=== PATIENT | male | born 1975 | race Caucasian/White ===

== ENCOUNTER 2017-08-29 11:57 | Observation (INO) | payer OTHER ==
[2017-08-29] VITALS (7 sets, daily range): BP systolic 123–181; BP diastolic 77–107; PULSE 86–108; RESP 14–20; TEMP 97.9–99; O2SAT 95–99
[~2017-08-29] VITALS: Ht 175.3 cm; Wt 104.5 kg
[2017-08-29] MEDS ORDERED: LISI-515 PO (12:16)
[2017-08-29] MEDS ORDERED: TEST1INJ3 IM (12:19)
[2017-08-29] MEDS ORDERED: ASPIRIN 325 MG TAB PO ONE (12:30)
[2017-08-29 12:36] LABS: AUTOMATED NEUTROPHIL # 4.8 TH/MM3 (1.8-7.7); BASOPHIL # 0.1 TH/MM3 (0-0.2); BASOPHIL % 1.1 % (0.0-2.0); EOSINOPHIL # 0.3 TH/MM3 (0-0.4); HEMATOCRIT 46.1 % (39.0-51.0); HEMOGLOBIN 16.1 GM/DL (13.0-17.0); LYMPH % 31.4 % (9.0-44.0); LYMPHOCYTE # 2.7 TH/MM3 (1.0-4.8); MEAN CELL VOLUME 87.8 FL (80.0-100.0); MEAN CORPUSCULAR HEMOGLOBIN 30.7 PG (27.0-34.0); MEAN CORPUSCULAR HGB CONC 34.9 % (32.0-36.0); MEAN PLATELET VOLUME 8.8 FL (7.0-11.0); MONO % 9.7 % (0.0-8.0); MONOCYTE # 0.8 TH/MM3 (0-0.9); NEUT % 54.8 % (16.0-70.0); PLATELET COUNT 240 TH/MM3 (150-450); RED BLOOD COUNT 5.25 MIL/MM3 (4.50-5.90); RED CELL DISTRIBUTION WIDTH 13.7 % (11.6-17.2); WHITE BLOOD COUNT 8.7 TH/MM3 (4.0-11.0)
[2017-08-29 12:47] LABS: PROTHROMBIN TIME - PATIENT 10.6 SEC (9.8-11.6)
--- NOTE | 2017-08-29 12:48 | PD ---
HPI Chief Complaint: Chest Pain Time Seen by Provider: 12:12 Travel History International Travel<30 days: No Contact w/Intl Traveler<30days: No Traveled to known affect area: No History of Present Illness HPI 42 yo male here for left sided chest pain and dizziness x 2 months. Going on and off. Per patient he has had EKGs at his house that have been normal. Was seen by a doctor who started him on antibiotics for possible "stomach" issues and this seemed to improve symptoms for some time. Now patient is having symptoms again. Nothing seems to bring it. No SOB. Not worst with movement. Pain is 5/10 and sharp. No urinary and BM issues. Feeling nauseous on occasion. No chest pain at this time. He got more concerned because of the dizziness he is having now which is new. Per patient he feels like he is going to pass out. History of hypertension on meds and on testosterone therapy for low testosterone. Recent travel history by plane to [place]. No other medical issues at this time. Not taken anything for this. 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 PFSH Past Medical History Cardiovascular Problems: Yes (HTN) Diminished Hearing: No Hypertension: Yes Tetanus Vaccination: Unknown Social History Alcohol Use: No Tobacco Use: No Substance Use: No Allergies-Medications (Allergen,Severity, Reaction): Coded Allergies: No Known Allergies (Unverified , 08/29/17) Reported Meds & Prescriptions Reported Meds & Active Scripts Active Reported Testosterone Cypionate Inj (Testosterone Cypionate) 100 Mg/Ml Inj 100 Mg IM WEEKLY Lisinopril 20 Mg Tab 20 Mg PO DAILY Review of Systems Except as stated in HPI: all other systems reviewed are Neg Physical Exam Narrative GENERAL: SKIN: Warm and dry. HEAD: Atraumatic. Normocephalic. EYES: Pupils equal and round. No scleral icterus. No injection or drainage. ENT: No nasal bleeding or discharge. Mucous membranes pink and moist. NECK: Trachea midline. No JVD. CARDIOVASCULAR: Regular rate and rhythm. No murmurs, S3, S4. RESPIRATORY: No accessory muscle use. Clear to auscultation. Breath sounds equal bilaterally. GASTROINTESTINAL: Abdomen soft, non-tender, nondistended. Hepatic and splenic margins not palpable. MUSCULOSKELETAL: Extremities without clubbing, cyanosis, or edema. No obvious deformities. Full range of motion of the upper and lower extremities bilaterally. 2+ pulses bilaterally. NEUROLOGICAL: Awake and alert. No obvious cranial nerve deficits. Motor grossly within normal limits. Five out of 5 muscle strength in the arms and legs. Normal speech. PSYCHIATRIC: Appropriate mood and affect; insight and judgment normal. Data Data Last Documented VS Vital Signs Date Time Temp Pulse Resp B/P (MAP) Pulse Ox O2 Delivery O2 Flow Rate FiO2 08/29/17 13:00 91 16 175/96 (122) 96 Room Air 08/29/17 12:00 98.2 Orders Orders Electrocardiogram (08/29/17 12:20) Complete Blood Count With Diff (08/29/17 12:20) Comprehensive Metabolic Panel (08/29/17 12:20) Ckmb (Isoenzyme) Profile (08/29/17 12:20) Troponin I (08/29/17 12:20) Prothrombin Time / Inr (Pt) (08/29/17 12:20) Act Partial Throm Time (Ptt) (08/29/17 12:20) Lipase (08/29/17 12:20) D-Dimer (08/29/17 12:20) Magnesium (Mg) (08/29/17 12:20) Thyroid Stimulating Hormone (08/29/17 12:20) Chest, Single Ap (08/29/17 12:20) Iv Access Insert/Monitor (08/29/17 12:20) Ecg Monitoring (08/29/17 12:20) Oximetry (08/29/17 12:20) Aspirin (Aspirin) (08/29/17 12:30) CKMB (08/29/17 12:25) CKMB% (08/29/17 12:25) Admit Order (Ed Use Only) (08/29/17 13:34) Labs Laboratory Tests Test 08/29/17 12:25 White Blood Count 8.7 TH/MM3 Red Blood Count 5.25 MIL/MM3 Hemoglobin 16.1 GM/DL Hematocrit 46.1 % Mean Corpuscular Volume 87.8 FL Mean Corpuscular Hemoglobin 30.7 PG Mean Corpuscular Hemoglobin Concent 34.9 % Red Cell Distribution Width 13.7 % Platelet Count 240 TH/MM3 Mean Platelet Volume 8.8 FL Neutrophils (%) (Auto) 54.8 % Lymphocytes (%) (Auto) 31.4 % Monocytes (%) (Auto) 9.7 % Eosinophils (%) (Auto) 3.0 % Basophils (%) (Auto) 1.1 % Neutrophils # (Auto) 4.8 TH/MM3 Lymphocytes # (Auto) 2.7 TH/MM3 Monocytes # (Auto) 0.8 TH/MM3 Eosinophils # (Auto) 0.3 TH/MM3 Basophils # (Auto) 0.1 TH/MM3 CBC Comment DIFF FINAL Differential Comment Prothrombin Time 10.6 SEC Prothromb Time International Ratio 1.0 RATIO Activated Partial Thromboplast Time 26.4 SEC D-Dimer Quantitative (PE/DVT) 0.24 MG/L FEU Blood Urea Nitrogen 15 MG/DL Creatinine 1.07 MG/DL Random Glucose 101 MG/DL Total Protein 8.0 GM/DL Albumin 4.1 GM/DL Calcium Level 8.6 MG/DL Magnesium Level 2.0 MG/DL Alkaline Phosphatase 61 U/L Aspartate Amino Transf (AST/SGOT) 27 U/L Alanine Aminotransferase (ALT/SGPT) 40 U/L Total Bilirubin 0.3 MG/DL Sodium Level 136 MEQ/L Potassium Level 3.8 MEQ/L Chloride Level 103 MEQ/L Carbon Dioxide Level 25.3 MEQ/L Anion Gap 8 MEQ/L Estimat Glomerular Filtration Rate 76 ML/MIN Total Creatine Kinase 106 U/L Creatine Kinase MB 1.3 NG/ML Troponin I LESS THAN 0.02 NG/ML Lipase 173 U/L Thyroid Stimulating Hormone 3rd Gen 0.670 uIU/ML MDM Medical Decision Making Medical Screen Exam Complete: Yes Emergency Medical Condition: Yes Medical Record Reviewed: Yes Interpretation(s) EKG shows sinus rhythm with no sign of acute ischemia or arrhythmia read by me and attending. CBC & BMP Diagram 08/29/17 12:25 Total Protein 8.0, Albumin 4.1, Calcium Level 8.6, Magnesium Level 2.0, Alkaline Phosphatase 61, Aspartate Amino Transf (AST/SGOT) 27, Alanine Aminotransferase (ALT/SGPT) 40, Total Bilirubin 0.3 lipase WNL troponin and CKMB negative d-dimmer negative Differential Diagnosis Chest pain versus a typical chest pain versus ACS versus PE versus anxiety versus peptic ulcer disease Narrative Course 42-year-old male to presents to the ED for evaluation of chest pain. Patient was properly examined and was found to have signs and symptoms of unclear etiology. Patient does have risk factors for ACS. Labs and imaging ordered. Initial EKG do not show any sign of ischemia read by me and attending. She was given aspirin. Labs and imaging showed no sign of acute disease. Patient she does have risk factors for cardiac disease but has never had a stress test or cardiology evaluation. Because of the symptoms I do recommend stress test for further evaluation. Patient agrees with this. She was admitted to the chest pain center. Procedures EKG Prior to Arrival: No Diagnosis Primary Impression: Chest pain in adult Admitting Information Admitting Physician Requests: Observation [place] Aug 29, 2017 12:48
[2017-08-29 12:53] LABS: D-DIMER 0.24 MG/L FEU (0.00-0.50)
--- NOTE | 2017-08-29 12:55 | RADRPT ---
EXAM DATE/TIME: 08/29/2017 12:36 [facility] COMPARISON: No previous studies available for comparison. INDICATIONS : Has had chest pain several times in the past but pain was more severe today, nonsmoker, no chest surg owen in the past MEDICAL HISTORY : None. SURGICAL HISTORY : None. ENCOUNTER: Initial ACUITY: 1 day PAIN SCORE: 8/10 LOCATION: Bilateral cranial FINDINGS: Minimal linear airspace disease at the left lung base. The cardiomediastinal contours are unremarkabl e. Osseous structures are intact. CONCLUSION: 1. Minimal left lung base airspace disease, likely atelectasis. Marques Mccann MD on August 29, 2017 at 12:54 Board Certified Radiologist. This report was verified electronically.
[2017-08-29 13:08] LABS: ALKALINE PHOSPHATASE 61 U/L (45-117); TOTAL BILIRUBIN ADULT 0.3 MG/DL (0.2-1.0); TROPONIN I LESS THAN 0.02 NG/ML (0.02-0.05)
[2017-08-29 13:10] LABS: ALBUMIN 4.1 GM/DL (3.4-5.0); ALT (GPT) 40 U/L (12-78); AST (GOT) 27 U/L (15-37); BICARBONATE 25.3 MEQ/L (21.0-32.0); BLOOD UREA NITROGEN 15 MG/DL (7-18); CALCIUM 8.6 MG/DL (8.5-10.1); CHLORIDE 103 MEQ/L (98-107); CREATININE 1.07 MG/DL (0.60-1.30); GLOMERULAR FILTRATION RATE 76 ML/MIN (>89); GLUCOSE,RANDOM 101 MG/DL (74-106); SODIUM (NA) 136 MEQ/L (136-145)
[2017-08-29] MEDS ORDERED: cloNIDine HCL 0.1 MG TAB PO ONE (14:00)
[2017-08-29] MEDS ORDERED: RESP: ALBUTEROL 2.5 MG/IPRATROPIUM 0.5 MG NEB (PRN) INH (14:15)
[2017-08-29] MEDS ORDERED: ALPRAZolam 0.25 MG TAB PO PRN (14:15)
[2017-08-29] MEDS ORDERED: ACETAMINOPHEN/HYDROcodone 325 MG/7.5 MG TAB PO PRN (14:15)
[2017-08-29] MEDS ORDERED: cloNIDine HCL 0.1 MG TAB PO PRN (14:15)
[2017-08-29] MEDS ORDERED: ONDANSETRON HCL 4 MG/2 ML VIAL IV PUSH PRN (14:15)
[2017-08-29] MEDS ORDERED: ACETAMINOPHEN 500 MG CPLT PO PRN (14:15)
--- NOTE | 2017-08-29 14:30 | HHI.HP ---
HPI Primary Care Physician Unknown Chief Complaint Chest pain History of Present Illness This is a 42-year-old male with history of hypertension and hyperlipidemia that presents to ED with complaint of 3-4 months of intermittent left-sided chest discomfort. He describes it as a poking sensation that will last him a couple seconds couple minutes. Nothing in particular brings on the discomfort. He saw his primary care physician a couple months ago for this discomfort and had a chest x-ray and was placed on antibiotics but really did not seen any improvement. States he also bought a stationary exercise bicycle and does all 4 times a week for the past month and has never noticed discomfort in his chest. Denies shortness of breath, nausea or diaphoresis with the symptoms. Denies recent illness. Review of Systems General: Patient denies fevers, chills, recent travel HEENT: Patient denies headache, sore throat, difficulty swallowing. Cardiovascular: Has the chest discomfort as mentioned above. Denies sensation of heart beating rapidly or irregularly. No syncope. Denies diaphoresis. Respiratory: Denies shortness of breath or inspirational chest discomfort. Denies coughing wheezing or hemoptysis. GI: Patient denies nausea, vomiting, diarrhea, abdominal pain, bloody stools. Musculoskeletal: Patient denies joint pain or edema. Denies calf pain or edema. Neurovascular: Patient denies numbness, tingling, weakness in extremities. Denies headache. Endocrine: Denies polyuria and polydipsia. Hematologic: Denies easy bruising. Skin: Denies rash or itching. Past Family Social History Allergies: Coded Allergies: No Known Allergies (Unverified , 08/29/17) Past Medical History Hypertension, hyperlipidemia, GERD. Past tobacco abuse stating he quit years ago. Denies diabetes and known CAD. Past Surgical History Denies prior surgeries. Reported Medications Reported Meds & Active Scripts Active Reported Testosterone Cypionate Inj (Testosterone Cypionate) 100 Mg/Ml Inj 100 Mg IM WEEKLY Lisinopril 20 Mg Tab 20 Mg PO DAILY Active Ordered Medications Current Medications Medications (Trade) Dose Ordered Sig/Marcela Route Start Time Stop Time Status Last Admin (Tylenol) 500 mg Q4H PRN PO 08/29/17 14:15 UNV ([place] 7.5-325 Mg) 1 tab Q4H PRN PO 08/29/17 14:15 UNV (Zofran Inj) 4 mg Q6H PRN IV PUSH 08/29/17 14:15 UNV (Protonix) 40 mg DAILY PO 08/29/17 14:15 UNV (Aspirin) 325 mg DAILY PO 08/30/17 09:00 UNV (Xanax) 0.25 mg Q8H PRN PO 08/29/17 14:15 UNV (Duoneb Neb) 1 ampule Q4HR NEB PRN INH 08/29/17 14:15 UNV (Catapres) 0.1 mg Q4H PRN PO 08/29/17 14:15 UNV Family History States his mother had a CABG in her 60s. Social History Quit smoking years ago. Prior to that he smoked 1 pack of cigarettes daily for 15 years. As on average 4-5 beers per day. Denies illicit drugs. Physical Exam Vital Signs Vital Signs Date Time Temp Pulse Resp B/P (MAP) Pulse Ox O2 Delivery O2 Flow Rate FiO2 08/29/17 13:00 91 16 175/96 (122) 96 Room Air 08/29/17 12:33 16 98 Room Air 08/29/17 12:17 16 Room Air 08/29/17 12:00 98.2 86 14 181/107 (131) 99 Room Air Physical Exam GENERAL: This is a well-nourished, well-developed patient, in no apparent distress. Patient speaks in clear complete sentences. Patient is pleasant. HEENT: Head is atraumatic and normocephalic. Neck is supple without lymphadenopathy and trachea is midline. No JVD or carotid bruits. CARDIOVASCULAR: Regular rate and rhythm without murmurs, gallops, or rubs. RESPIRATORY: Clear to auscultation. Breath sounds equal bilaterally. No wheezes , rales, or rhonchi. Chest wall is nontender. No use of accessory muscles. GASTROINTESTINAL: Abdomen is nontender, nondistended. Abdomen soft. No obvious pulsatile mass or bruit. No CVA tenderness. Strong femoral pulses bilaterally. Normal bowel sounds in all quadrants. MUSCULOSKELETAL: Patient is moving upper and lower extremities freely. No calf tenderness or edema, no Homans sign. Strong pulses in upper and lower extremities. NEUROLOGICAL: Patient is alert and oriented. Cranial nerves 2-12 are grossly intact. No focal deficits and speech is clear. SKIN: No rash and turgor is normal. Laboratory Laboratory Tests Test 08/29/17 12:25 White Blood Count 8.7 Red Blood Count 5.25 Hemoglobin 16.1 Hematocrit 46.1 Mean Corpuscular Volume 87.8 Mean Corpuscular Hemoglobin 30.7 Mean Corpuscular Hemoglobin Concent 34.9 Red Cell Distribution Width 13.7 Platelet Count 240 Mean Platelet Volume 8.8 Neutrophils (%) (Auto) 54.8 Lymphocytes (%) (Auto) 31.4 Monocytes (%) (Auto) 9.7 Eosinophils (%) (Auto) 3.0 Basophils (%) (Auto) 1.1 Neutrophils # (Auto) 4.8 Lymphocytes # (Auto) 2.7 Monocytes # (Auto) 0.8 Eosinophils # (Auto) 0.3 Basophils # (Auto) 0.1 CBC Comment DIFF FINAL Differential Comment Prothrombin Time 10.6 Prothromb Time International Ratio 1.0 Activated Partial Thromboplast Time 26.4 D-Dimer Quantitative (PE/DVT) 0.24 Blood Urea Nitrogen 15 Creatinine 1.07 Random Glucose 101 Total Protein 8.0 Albumin 4.1 Calcium Level 8.6 Magnesium Level 2.0 Alkaline Phosphatase 61 Aspartate Amino Transf (AST/SGOT) 27 Alanine Aminotransferase (ALT/SGPT) 40 Total Bilirubin 0.3 Sodium Level 136 Potassium Level 3.8 Chloride Level 103 Carbon Dioxide Level 25.3 Anion Gap 8 Estimat Glomerular Filtration Rate 76 Total Creatine Kinase 106 Creatine Kinase MB 1.3 Troponin I LESS THAN 0.02 Lipase 173 Thyroid Stimulating Hormone 3rd Gen 0.670 Result Diagram: 08/29/17 1225 08/29/17 1225 Imaging Last 48 hours Impressions Chest X-Ray 08/29/17 1220 Signed Impressions: Service Date/Time: Tuesday, August 29, 2017 12:36 - CONCLUSION: 1. Minimal left lung base airspace disease, likely atelectasis. Marques Mccann MD Course Initial EKG is sinus rhythm without significant ST segment depressions or elevations. Caprini VTE Risk Assessment Caprini VTE Risk Assessment: No/Low Risk (score <= 1) Caprini Risk Assessment Model Point Value = 1 Point Value = 2 Point Value = 3 Point Value = 5 Age 41-60 Minor surgery BMI > 25 kg/m2 Swollen legs Varicose veins or History of unexplained or recurrent spontaneous Oral contraceptives or hormone replacement Sepsis (< 1 month) Serious lung disease, including pneumonia (< 1 month) Abnormal pulmonary function Acute myocardial infarction Congestive heart failure (< 1 month) History of inflammatory bowel disease Medical patient at bed rest Age 61-74 Arthroscopic surgery Major open surgery (> 45 min) Laparoscopic surgery (> 45 min) Malignancy Confined to bed (> 72 hours) Immobilizing plaster cast Central venous access Age >= 75 History of VTE Family history of VTE Factor V Leiden Prothrombin [id number] Lupus anticoagulant Anticardiolipin antibodies Elevated serum homocysteine Heparin-induced thrombocytopenia Other congenital or acquired thrombophilia Stroke (< 1 month) Elective arthroplasty Hip, pelvis, or leg fracture Acute spinal cord injury (< 1 month) Prophylaxis Regimen Total Risk Factor Score Risk Level Prophylaxis Regimen 0-1 Low Early ambulation 2 Moderate Order ONE of the following: *Sequential Compression Device (SCD) *Heparin 5000 units SQ BID 3-4 Higher Order ONE of the following medications: *Heparin 5000 units SQ TID *Enoxaparin/Lovenox 40 mg SQ daily (WT < 150 kg, CrCl > 30 mL/min) *Enoxaparin/Lovenox 30 mg SQ daily (WT < 150 kg, CrCl > 10-29 mL/min) *Enoxaparin/Lovenox 30 mg SQ BID (WT < 150 kg, CrCl > 30 mL/min) AND/OR *Sequential Compression Device (SCD) 5 or more Highest Order ONE of the following medications: *Heparin 5000 units SQ TID (Preferred with Epidurals) *Enoxaparin/Lovenox 40 mg SQ daily (WT < 150 kg, CrCl > 30 mL/min) *Enoxaparin/Lovenox 30 mg SQ daily (WT < 150 kg, CrCl > 10-29 mL/min) *Enoxaparin/Lovenox 30 mg SQ BID (WT < 150 kg, CrCl > 30 mL/min) AND *Sequential Compression Device (SCD) Assessment and Plan Assessment and Plan * Chest pain: Patient will continue to have serial cardiac enzymes and EKGs for ruling out purposes. He will be seen by Dr. Simpson of cardiology in the chest pain center. He will likely undergo a Shamar protocol ETT if he rules out serial cardiac enzymes and EKGs. He will be discharged home with a stress test was nonischemic. He should follow-up with PCP. Return to ED for interval issues. * Hypertension: Patient states blood pressure is usually controlled with his lisinopril 20 mg. He was hypertensive in the ED. We will continue to monitor. * Hyperlipidemia: Patient states he has not been prescribed medication. She discusses with his PCP. With family history of CAD should have his lipid panel under control. * GERD: Continue medication. Patient is stable at this time. He is agreeable to this plan. Baltazar Belle Aug 29, 2017 14:30
[2017-08-29] MEDS: PANTOPRAZOLE SOD 40 MG DELAYED RELEASE TAB PO SCH (16:51)
[2017-08-29 17:01] LABS: TROPONIN I LESS THAN 0.02 NG/ML (0.02-0.05)
[2017-08-29 19:34] LABS: TROPONIN I LESS THAN 0.02 NG/ML (0.02-0.05)
[2017-08-30 03:28] VITALS: BP 114/76; PULSE 74; RESP 16; TEMP 97.7; O2SAT 97
[2017-08-30 07:36] VITALS: PULSE 68
[2017-08-30] MEDS: PANTOPRAZOLE SOD 40 MG DELAYED RELEASE TAB PO SCH (08:35)
[2017-08-30] MEDS ORDERED: ASPIRIN 325 MG TAB PO SCH (09:00)
--- NOTE | 2017-08-30 10:01 | HHI.DCPOC ---
Discharge Care Plan Diagnosis: (1) Chest pain (2) Hypertension Goals to Promote Your Health DISCUSS WITH YOUR PRIMARY CARE PHYSICIAN GOING ON A BLOOD PRESSURE MEDICINE CALLED AN "ARB" IN EXCHANGE OF LISINOPRIL SECONDARY TO COUGH. * To prevent worsening of your condition and complications * To maintain your health at the optimal level Directions to Meet Your Goals Take your medications as prescribed Follow your dietary instruction Follow activity as directed Keep your appointments as scheduled Take your immunizations and boosters as scheduled If your symptoms worsen call your PCP, if no PCP go to Urgent Care Center or Emergency Room Smoking is Dangerous to Your Health. Avoid second hand smoke Call the 24-hour hour crisis hotline for domestic abuse at Baltazar Belle Aug 30, 2017 10:01
[2017-08-30] MEDS ORDERED: LISINOPRIL 20 MG TAB PO ONE (10:30)
--- NOTE | 2017-08-30 11:10 | TR ---
Date Performed: 08/30/2017 Time Performed: 08:55:56 DOCTOR: David Marquez DRUG LIST: CLINICAL HISTORY: CHEST PAIN REASON FOR TEST: Chest pain REASON FOR ENDING: OBSERVATION: CONCLUSION: SD PROTOCOL. NO CP. TEST STOPPED AFTER EXCEEDING GOAL HR SECONDARY TO SOB AND LEG FATIGUE.Maximum RC=203 % Max HR Achieved=88.0% Maximum LH=192/78 Total Exercise Time=8:01 COMMENTS: Conclusion: Normal treadmill exercise. No evidence of ischemia.
--- NOTE | 2017-08-30 14:20 | EKG ---
Date Performed: 08/29/2017 Time Performed: 18:30:48 PTAGE: 42 years EKG: Sinus rhythm NORMAL ECG PREVIOUS TRACING : 08/29/2017 15.43 Since previous tracing, no significant change noted DOCTOR: David Marquez Interpretating Date/Time 08/30/2017 14:18:33
--- NOTE | 2017-08-30 14:22 | EKG ---
Date Performed: 08/29/2017 Time Performed: 15:43:55 PTAGE: 42 years EKG: Sinus rhythm POSSIBLE LEFT ATRIAL ENLARGEMENT BORDERLINE ECG PREVIOUS TRACING : 08/29/2017 12.15 Since previous tracing, no significant change noted DOCTOR: Daivd Marquez Interpretating Date/Time 08/30/2017 14:21:05
--- NOTE | 2017-08-30 14:23 | EKG ---
Date Performed: 08/29/2017 Time Performed: 12:15:28 PTAGE: 42 years EKG: Sinus rhythm NORMAL ECG INTERPRETATION BASED ON A DEFAULT AGE OF 40 YEARS NO PREVIOUS TRACING DOCTOR: David Marquez Interpretating Date/Time 08/30/2017 14:22:13
== END 2017-08-30 10:50 | disposition home or self-care (01) ==
LOC: NEPC 11:57 → NEDA 13:36 → NEPGCP 15:05
PROVIDERS: ADMIT Internal Medicine Interventional Cardiology; ATTEND Internal Medicine Interventional Cardiology
DX: R07.9 Chest pain, unspecified (principal); R42 Dizziness and giddiness; R11.0 Nausea; I10 Essential (primary) hypertension; E78.5 Hyperlipidemia, unspecified; K21.9 Gastro-esophageal reflux disease without esophagitis; Z79.899 Other long term (current) drug therapy; Z87.891 Personal history of nicotine dependence; Z82.49 Family history of ischemic heart disease and other diseases of the circulatory system
CPT/HCPCS: 71045; 80053; 82550; 82552; 83690; 83735; 84443; 84484; 85025; 85379; 85610; 85730; 93005; 93017; 99285; G0378